=== PATIENT | male | born 1960 | race Caucasian/White ===

== ENCOUNTER 2018-01-21 20:06 | Emergency (ER) | payer BC ==
--- NOTE | 2018-01-21 20:19 | ED ---
Chest Pain HPI - General Chief Complaint: Chest Pain Stated Complaint: Chest Pain Time Seen by Provider: 01/21/18 20:16 Source: patient Mode of arrival: wheelchair Limitations: no limitations - History of Present Illness Initial Comments: This patient's 57-year-old man who presents to be evaluated for left-sided chest pain. The pain came on around 4:30 while he was cleaning the bathroom. He describes it as being sharp. It is constant. He states that it gradually progressed until it is now moderate severity. He does note that it may be a touch worse if he takes a deep breath. There are no other worsening or relieving factors. He has not had any anginal symptoms associated. The patient notes that he was able to work out as usual he does not get any exertional chest pains. MD Complaint: chest pain Onset/Timin -: hour(s) Onset: other (While cleaning bathroom) Pain Location: left chest Pain Radiation: none Severity: moderate Quality: sharp Consistency: constant Improves With: nothing Worsens With: inspiration Treatments Prior to Arrival: none - Related Data Home Medications Medication Instructions Recorded Confirmed Ibuprofen [Advil] 200 mg PO Q6HR PRN 01/21/18 01/21/18 Multivitamins, Thera [Multivitamin 1 tab PO DAILY 01/21/18 01/21/18 (formulary)] Allergies Allergy/AdvReac Type Severity Reaction Status Date / Time No Known Allergies Allergy Verified 01/21/18 20:43 Review of Systems ROS Statement: Those systems with pertinent positive or pertinent negative responses have been documented in the HPI. ROS Other: All systems not noted in ROS Statement are negative. Constitutional: Denies: fever, chills Respiratory: Denies: cough, dyspnea Cardiovascular: Reports: chest pain. 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) Past Medical History Past Medical History: No Reported History Additional Past Medical History / Comment(s): ARTHRITIS History of Any Multi-Drug Resistant Organisms: None Reported Past Surgical History: Appendectomy, Hernia Repair, Tonsillectomy Additional Past Surgical History / Comment(s): PRECANCEROUS LESIONS REMOVED FROM SCALP, COLONOSCOPY Past Anesthesia/Blood Transfusion Reactions: No Reported Reaction Past Psychological History: No Psychological Hx Reported Smoking Status: Never smoker Past Alcohol Use History: None Reported Past Drug Use History: None Reported - Past Family History Father Family Medical History: Cancer, Diabetes Mellitus, Hyperlipidemia, Hypertension Additional Family Medical History / Comment(s): FROM PANCREATIC CANCER/ HAD BLADDER CA IN HIS 50'S Mother Family Medical History: Osteoarthritis (OA) General Exam Limitations: no limitations General appearance: alert, in no apparent distress Head exam: Present: atraumatic, normocephalic Eye exam: Present: normal appearance. Absent: scleral icterus, conjunctival injection ENT exam: Present: normal oropharynx Neck exam: Present: normal inspection, full ROM Respiratory exam: Present: normal lung sounds bilaterally. Absent: respiratory distress, wheezes, rales, rhonchi, stridor, chest wall tenderness, accessory muscle use, decreased breath sounds, prolonged expiratory Cardiovascular Exam: Present: regular rate, normal rhythm, normal heart sounds. Absent: systolic murmur, diastolic murmur, rubs, gallop GI/Abdominal exam: Present: soft. Absent: tenderness, guarding, rebound, mass Extremities exam: Present: normal inspection, normal capillary refill. Absent: pedal edema, calf tenderness Back exam: Present: normal inspection. Absent: CVA tenderness (R), CVA tenderness (L) Neurological exam: Present: alert Skin exam: Present: warm, dry, intact, normal color. Absent: rash Course Vital Signs 01/21/18 01/21/18 01/21/18 20:08 20:20 20:22 Temperature 97.6 F Pulse Rate 53 L 58 L Pulse Rate [ 51 L Oxygen Therapist ] Respiratory 16 16 Rate Blood Pressure 155/69 166/77 O2 Sat by Pulse 100 100 Oximetry 01/21/18 01/21/18 01/21/18 21:27 22:29 23:23 Temperature 97.7 F Pulse Rate 61 51 L 50 L Pulse Rate [ Oxygen Therapist ] Respiratory 14 16 16 Rate Blood Pressure 142/71 130/63 128/69 O2 Sat by Pulse 98 99 99 Oximetry Disposition Clinical Impression: Chest pain Disposition: HOME SELF-CARE Condition: Good Instructions: Chest Pain (ED) Referrals: Tyler Bynum MD [Primary Care Provider] - 1-2 days
[2018-01-21 20:37] LABS: Basophils # (A) 0.1 k/uL (0-0.2); Basophils % (A) 1 %; Eosinophils # (A) 0.3 k/uL (0-0.7); Eosinophils % (A) 5 %; HCT 44.9 % (39.0-53.0); HGB 15.5 gm/dL (13.0-17.5); Lymphocytes # (A) 1.4 k/uL (1.0-4.8); Lymphocytes % (A) 23 %; MCH 30.7 pg (25.0-35.0); MCHC 34.5 g/dL (31.0-37.0); MCV 88.9 fL (80.0-100.0); Mean Platelet Volume 6.5; Monocytes # (A) 0.4 k/uL (0-1.0); Monocytes % (A) 7 %; Neutrophils # (A) 3.7 k/uL (1.3-7.7); Neutrophils % (A) 60 %; Platelet Count 263 k/uL (150-450); RBC 5.06 m/uL (4.30-5.90); RDW 12.2 % (11.5-15.5); WBC 6.1 k/uL (3.8-10.6)
[2018-01-21 20:44] LABS: Albumin 4.4 g/dL (3.5-5.0); Calcium 9.7 mg/dL (8.4-10.2); Total Bilirubin 0.2 mg/dL (0.2-1.3); Total Protein 7.5 g/dL (6.3-8.2)
[2018-01-21 20:50] LABS: D-Dimer 0.28 mg/L FEU (<0.60); Partial Thromboplastin Time 23.1 sec (22.0-30.0); Prothrombin Time 10.1 sec (9.0-12.0)
[2018-01-21] MEDS ORDERED: IBUPROFEN 600 MG TAB PO STA (20:52)
[2018-01-21] MEDS ORDERED: ASPIRIN 81 MG PO STA (20:52)
[2018-01-21 20:53] LABS: Creatine Kinase 184 U/L (55-170)
--- NOTE | 2018-01-21 20:56 | XR ---
EXAMINATION TYPE: XR chest 1V portable DATE OF EXAM: 01/21/2018 COMPARISON: 10/13/2014 HISTORY: Chest pain TECHNIQUE: Single frontal view of the chest is obtained. FINDINGS: There is no heart failure nor confluent pneumonic infiltrate. Costophrenic angles are merle r. There are chest leads. Bony thorax appears intact. IMPRESSION: Normal chest. No change.
[2018-01-21 21:06] LABS: Troponin I <0.012 ng/mL (0.000-0.034)
[2018-01-21 21:08] LABS: Creatine Kinase MB 3.2 ng/mL (0.0-2.4)
[2018-01-21 23:25] VITALS: PULSE 50
[2018-01-22 00:13] VITALS: BP 128/61; RESP 18; TEMP 98.4
== END 2018-01-22 00:13 | disposition home or self-care (01) ==
LOC: EC 20:06
DX: R07.9 Chest pain, unspecified (principal)
CPT/HCPCS: 36415; 71045; 80053; 82550; 82553; 83735; 84484; 85025; 85379; 85610; 85730; 93005; 99285